=== PATIENT | female | born 1985 | race Caucasian/White ===

== ENCOUNTER 2020-04-15 21:14 | Observation (INO) ==
[2020-04-16] MEDS ORDERED: 1: Ringers Solution, Lactated 1,000 ML with Promethazine 50 MG 2: Ringers Solution, Lac IV SCH
[2020-04-16] MEDS ORDERED: Naloxone 0.4 MG/ML INJ IVP PRN (00:06)
[2020-04-16] MEDS ORDERED: Morphine Sulfate 2 MG/ML SYRINGE IVP ONE ×2 (00:28→03:39)
[2020-04-16] MEDS ORDERED: Promethazine 50 MG in Ringers Solution, Lactated 1,000 ML IV SCH (01:00)
[2020-04-16 01:08] LABS: Basophils % 0.2 %; Eosinophils % 0.1 %; Hematocrit 34.4 % (35.3-44.9); Hemoglobin 11.5 g/dL (11.5-15.4); Immature Granulocytes % 0.9 % (0-4); Lymphocytes # 0.6 K/mcL (0.6-4.6); Lymphocytes % 4.8 %; Mean Corpuscular HGB Conc 33.4 g/dL (31.6-35.5); Mean Corpuscular Hemoglobin 30.7 pg (28.0-33.3); Mean Platelet Volume 11.4 fL (9.4-12.4); Monocytes # 0.2 K/mcL (0.0-1.3); Monocytes % 1.6 %; Neutrophils # 10.6 K/mcL (1.6-8.9); Platelet Count 189 K/mcL (140-400); Red Blood Count 3.74 M/mcL (3.82-4.97); Red Cell Distribution Width 13.2 % (11.5-14.5); Segmented Neutrophils % 92.4 %; White Blood Count 11.5 K/mcL (4.3-11.1)
[2020-04-16 02:14] LABS: Alanine Aminotransferase 10 Units/L (7-52); Albumin 3.2 g/dL (3.5-5.7); Albumin/Globulin Ratio 1.2 (1.1-2.2); Alkaline Phosphatase 81 Units/L (34-104); Amylase 13 Units/L (29-103); Aspartate Amino Transferase 12 Units/L (13-39); BUN/Creatinine Ratio 16 (6-26); Bilirubin,Total 0.4 mg/dL (0.3-1.0); Blood Urea Nitrogen 5 mg/dL (6-20); Carbon Dioxide 14 mEq/L (23-29); Chloride 109 mEq/L (98-107); Globulin 2.7 g/dL (2.4-3.5); Glucose 80 mg/dL (70-105); Lipase 3 Units/L (11-82); Osmolality,Calculated 276 (280-300); Potassium 3.5 mEq/L (3.5-5.1); Sodium 135 mEq/L (136-145); Total Protein 5.9 g/dL (6.4-8.9); eGFR For African Americans > 60 (> 60); eGFR For Non-African Americans > 60 (> 60)
[2020-04-16] MEDS ORDERED: Morphine Sulfate 2 MG/ML SYRINGE IVP PRN (05:59)
[2020-04-16] MEDS ORDERED: Famotidine 20 MG/2 ML VIAL IVP SCH (09:00)
[2020-04-16] MEDS ORDERED: Pyridoxine (B-6) 50 MG in Ringers Solution, Lactated 1,000 ML IVPB SCH (09:00)
[2020-04-16] MEDS ORDERED: Ondansetron 4 MG/2 ML VIAL IVP PRN (12:40)
[2020-04-16 14:29] VITALS: BP 110/58
[2020-04-16] MEDS ORDERED: Scopolamine Patch 1.5 MG PATCH.TD72 TD SCH (14:45)
[2020-04-16] MEDS ORDERED: MVI, adult with vitamin K 10 ML in Ringers Solution, Lactated 1,000 ML IV SCH (17:00)
[2020-04-16] MEDS ORDERED: cefTRIAXone 1,000 MG in 0.9 % Sodium Chloride Mini Bag 100 ML IVPB SCH (20:00)
== END 2020-04-16 15:00 | disposition home or self-care (01) ==
LOC: 1NENUOBS
PROVIDERS: ADMIT Advanced Practice Midwife; ATTEND Advanced Practice Midwife